=== PATIENT | female | born 1990 | race Asian ===

== ENCOUNTER 2017-09-19 02:50 | Emergency (ER) | payer OTHER ==
[~2017-09-19] VITALS: Ht 158.8 cm; Wt 63.5 kg
[2017-09-19] MEDS ORDERED: SODIUM CHLORIDE 0.9% 1000ML 1,000 ML IV STA (02:56)
[2017-09-19 03:05] VITALS: TEMP 36.7; O2SAT 99; Ht 158.8 cm; Wt 63.5 kg
[2017-09-19 03:11] LABS: BASO % 0.2 %; BASO ABS # 0.02 K/uL (0-0.2); EOS % 1.6 %; EOS ABS # 0.15 K/uL (0-0.5); HEMATOCRIT 42.7 % (37-47); HEMOGLOBIN 14.7 g/dL (12.0-16.0); IG# 0.04 K/uL (0.00-0.02); LYMPH % 27.1 %; LYMPH ABS # 2.52 K/uL (1.2-3.4); MEAN CELL VOLUME 89.1 fL (80-100); MEAN CORPUSCULAR HEMOGLOBIN 30.7 pg (25-34); MEAN CORPUSCULAR HGB CONC 34.4 g/dl (32-36); MEAN PLATELET VOLUME 9.5 fL (7.4-10.4); MONO % 5.8 %; MONO ABS # 0.54 K/uL (0.11-0.59); NEUT % 64.9 %; NEUT ABS # 6.03 K/uL (1.4-6.5); PLATELET COUNT 222 K/uL (130-400); RED CELL DISTRIBUTION WIDTH CV 12.4 % (11.5-14.5); RED CELL DISTRIBUTION WIDTH SD 40.2 fL (36.4-46.3)
[2017-09-19] MEDS ORDERED: OPTIRAY 320 IV PRN (03:15)
[2017-09-19] MEDS ORDERED: ONDANSETRON INJ 2 MG/ML 2 ML VIAL IV STA (03:17)
[2017-09-19] MEDS ORDERED: MoRPHine SULFATE 4 MG/ML 1 ML CARP\\VIAL IV STA (03:17)
[2017-09-19] MEDS ORDERED: MoRPHine SULFATE 4 MG/ML 1 ML CARP\\VIAL ONE (03:19)
[2017-09-19 03:57] LABS: ALBUMIN 4.2 gm/dl (3.4-5.0); ALKALINE PHOSPHATASE 52 U/L (45-117); ALT/SGPT 20 U/L (12-78); AST/SGOT 22 U/L (15-37); BLOOD UREA NITROGEN 11 mg/dl (7-18); CALCIUM 8.8 mg/dl (8.5-10.1); CARBON DIOXIDE 25 mmol/L (21-32); CREATININE 0.88 mg/dl (0.60-1.20); GLUCOSE 104 mg/dl (70-99); POTASSIUM 3.5 mmol/L (3.5-5.1); SODIUM 136 mmol/L (136-145); TOTAL PROTEIN 8.3 gm/dl (6.4-8.2)
[2017-09-19] MEDS ORDERED: KETOROLAC TROMETHAMINE 30 MG/ML VIAL IV STA (04:39)
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
[2017-09-19] MEDS ORDERED: OXYCODONE IR HOME PACK PO ONE (05:30)
[2017-09-19 06:08] VITALS: BP 112/87; PULSE 80; O2SAT 99
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
== END 2017-09-19 06:10 | disposition home or self-care (01) ==
LOC: C.EDB 02:51
DX: S32.010A Wedge compression fracture of first lumbar vertebra, initial encounter for closed fracture (principal); R10.9 Unspecified abdominal pain; V89.2XXA Person injured in unspecified motor-vehicle accident, traffic, initial encounter